=== PATIENT | female | born 1945 | race Caucasian/White ===

== ENCOUNTER 2019-07-03 18:38 | Emergency (ER) | payer MEDICARE ==
[~2019-07-03] VITALS: Ht 160 cm; Wt 58.2 kg
[2019-07-03 18:41] VITALS: BP 126/60
[2019-07-03] MEDS ORDERED: morphine 4 MG/ML inj SYRINge IM ONE (19:45)
[2019-07-03] MEDS ORDERED: ondansetron 4mg rapidly disintigrating tab PO ONE (19:45)
[2019-07-03] MEDS ORDERED: PER5325T PO (19:49)
[2019-07-03] MEDS ORDERED: LIDO700A32 TOP (19:49)
== END 2019-07-03 20:17 | disposition home or self-care (01) ==
LOC: ER 18:39
DX: B02.9 Zoster without complications (principal)
CPT/HCPCS: 96372; 99283; J2270